=== PATIENT | male | born 1980 | race Caucasian/White ===

== ENCOUNTER 2019-01-31 09:31 | Emergency (ER) | payer MEDICAID ==
[~2019-01-31] VITALS: Ht 157.5 cm; Wt 67.1 kg
[2019-01-31 09:35] VITALS: BP 132/73; Ht 157.5 cm; Wt 67.1 kg
== END 2019-01-31 10:17 | disposition home or self-care (01) ==
LOC: ED 09:31
DX: B34.9 Viral infection, unspecified (principal)
CPT/HCPCS: 87804